=== PATIENT | female | born 1995 | race Two or more races ===

== ENCOUNTER 2023-10-03 12:28 | Emergency (ER) | payer OTHER ==
[~2023-10-03] VITALS: Ht 160 cm; Wt 77.1 kg
[2023-10-03 19:16] LABS: HEMATOCRIT 40.2 % (36.0-45.00); HEMOGLOBIN 13.5 g/dL (12.0-15.00); MEAN CELL VOLUME 85.8 fL (80.00-100.00); MEAN CORPUSCULAR HEMOGLOBIN 28.7 pg (27.00-32.0); MEAN CORPUSCULAR HGB CONC 33.5 g/dl (32.0-36.0); PLATELET COUNT 327 K/uL (150-450); RED BLOOD COUNT 4.69 M/uL (4.00-6.00); RED CELL DISTRIBUTION WIDTH 13.3 % (11.5-14.5)
[2023-10-03 19:52] LABS: URINE APPEARANCE Clear; URINE BILIRRUBIN Negative (NEGATIVE); URINE BLOOD Negative; URINE COLOR Yellow; URINE GLUCOSE Negative (NEGATIVE); URINE LEUKOCYTE Negative; URINE NITRATE Negative; URINE PROTEIN Negative (NEGATIVE); URINE UROBILINOGEN 0.2 E.U./dl
[2023-10-03 19:56] LABS: URINE BACTERIA 888.1 uL (0.0-1933); URINE EPITHELIAL CELLS 10.8 uL (0.0-38.8); URINE WBC 11.5 uL (0.0-23.2)
== END 2023-10-03 21:47 | disposition home or self-care (01) ==
LOC: ER 12:29
PROVIDERS: General Practice
DX: N39.0 Urinary tract infection, site not specified (principal); Z91.013 Allergy to seafood; N76.0 Acute vaginitis; N83.292 Other ovarian cyst, left side